=== PATIENT | female | born 1995 | race American Indian/Alaskan Native ===

== ENCOUNTER → 2017-03-18 | Outpatient (CLI) | payer OTHER, BC ==
[~2017-03-18] MED LIST: ETON1VAG EC
== END | disposition home or self-care (01) ==
LOC: CFH 08:51
PROVIDERS: ATTEND Nurse Practitioner Family
DX: R10.9 Unspecified abdominal pain (principal)
CPT/HCPCS: 76700

== ENCOUNTER 2019-03-26 07:59 | Outpatient (CLI) | payer BC, OTHER | END 2019-03-26 23:59 | disposition home or self-care (01) | LOC: CFH 07:59 | PROVIDERS: ATTEND Internal Medicine Cardiovascular Disease | DX: I08.8 Other rheumatic multiple valve diseases (principal) | CPT/HCPCS: 93306 ==